=== PATIENT | male | born 1965 | race Caucasian/White ===

== ENCOUNTER → 2020-04-26 | Outpatient (CLI) | payer BC | LOC: RAD 08:40 | DX: R22.1 Localized swelling, mass and lump, neck (principal) ==

== ENCOUNTER → 2020-10-11 | Outpatient (CLI) | payer BC | LOC: RAD 09:50 | DX: R10.9 Unspecified abdominal pain (principal); R31.9 Hematuria, unspecified | CPT/HCPCS: Q9967 ==

== ENCOUNTER 2023-11-15 11:44 | Emergency (ER) | payer OTHER ==
[~2023-11-15] VITALS: Ht 198.1 cm; Wt 106.5 kg
[2023-11-15] MEDS ORDERED: ACETAMINOPHEN-H1 TA2 PO (12:20)
[2023-11-15] MEDS ORDERED: PRILOSEC 20MG20 MG (12:20)
[2023-11-15] MEDS ORDERED: TRELEGY ELLIPT1 EAC1 IH (12:21)
[2023-11-15] MEDS ORDERED: ROSUVASTATIN CA40 MG PO (12:21)
[2023-11-15 12:27] LABS: BASO # 0.02 K/mm3 (0.02-0.10); EOS # 0.09 K/mm3 (0.04-0.40); EOS % 1.3 % (0.0-4.0); HEMATOCRIT 49.2 % (42.0-52.0); HEMOGLOBIN 16.6 g/dL (13.5-18.0); LYMPH# 1.31 K/mm3 (1.50-4.00); MEAN CELL VOLUME 89 fl (78-100); MEAN CORPUSCULAR HEMOGLOBIN 30 pg (27-31); MEAN CORPUSCULAR HGB CONC 34 g/dL (33-37); MEAN PLATELET VOLUME 10.1 fl (7.4-10.4); MONO # 0.38 K/mm3 (0.20-0.80); PLATELET COUNT 208 K/mm3 (130-400); RED BLOOD COUNT 5.51 M/mm3 (4.20-5.60); RED CELL DISTRIBUTION WIDTH 13.4 % (11.5-14.5); WHITE BLOOD COUNT 7.1 K/mm3 (4.8-10.8)
[2023-11-15 12:32] LABS: ALBUMIN 4.2 g/dL (3.5-5.0)
[2023-11-15 12:33] LABS: CALCIUM 9.2 mg/dL (8.3-10.5)
[2023-11-15 12:34] LABS: TOTAL PROTEIN 6.9 g/dL (6.4-8.3)
[2023-11-15 12:36] LABS: TOTAL BILIRUBIN 0.8 mg/dL (0.2-1.2)
[2023-11-15 14:07] LABS: D-DIMER 0.46 mg/L FEU (0.15-0.50)
[2023-11-15 14:21] LABS: URINE APPEARANCE CLEAR (CLEAR); URINE COLOR YELLOW (YELLOW)
[2023-11-15 14:22] LABS: URINE BILIRUBIN NEGATIVE (NEGATIVE); URINE BLOOD TRACE-INTACT (NEGATIVE); URINE GLUCOSE NEGATIVE (NEGATIVE); URINE KETONE NEGATIVE (NEGATIVE); URINE LEUKOCYTE ESTERASE NEGATIVE (NEGATIVE); URINE NITRATE NEGATIVE (NEGATIVE); URINE PROTEIN(semi-quant) NEGATIVE (NEGATIVE); URINE WBC 0-1 /hpf (0-3)
[2023-11-15] MEDS ORDERED: Mag/Al Hydrox/Simeth Susp 30 ML CUP PO ONE (15:15)
[2023-11-15] MEDS ORDERED: Polyethylene Glycol 3350 Powder 17 GM PACKET PO ONE (15:45)
[2023-11-15 16:31] VITALS: BP 122/93
== END 2023-11-15 16:33 | disposition home or self-care (01) ==
LOC: ED 11:44
PROVIDERS: Family Medicine
DX: R10.11 Right upper quadrant pain (principal); R10.31 Right lower quadrant pain; R31.9 Hematuria, unspecified; F17.210 Nicotine dependence, cigarettes, uncomplicated
CPT/HCPCS: J7120

== ENCOUNTER → 2024-01-08 | Outpatient (CLI) | payer OTHER ==
[~2024-01-08] MED LIST: ACETAMINOPHEN-H1 TA2 PO; PRILOSEC 20MG20 MG; ROSUVASTATIN CA40 MG PO; TRELEGY ELLIPT1 EAC1 IH
== END ==
LOC: RAD 15:51
DX: J98.11 Atelectasis (principal)